=== PATIENT | male | born 1990 | race African-American/Black ===

== ENCOUNTER 2021-11-07 02:06 | Emergency (ER) | payer SELFPAY ==
[~2021-11-07] VITALS: Ht 175.3 cm; Wt 79.0 kg
[2021-11-07] MEDS ORDERED: CEFAZOLIN 1000MG PREMIX 50 ML IV ONE (02:30)
[2021-11-07] MEDS ORDERED: MORPHINE SULFATE 2 MG/ML CPJ (NOT FOR IM USE) IV ONE (02:30)
[2021-11-07] MEDS ORDERED: LIDOCAINE HCL/EPINEPHRINE 1%-EPI 1:100,000 20 ML VIAL INFIL ONE (02:45)
[2021-11-07] MEDS ORDERED: BACITRACIN ZINC OINT UDPKT TOP ONE (02:45)
[2021-11-07] MEDS ORDERED: ONDANSETRON HCL 4MG/2ML INJ IV ONE (02:45)
[2021-11-07 02:48] VITALS: BP 124/90
[2021-11-07] MEDS ORDERED: AMOX-424 MT (04:28)
== END 2021-11-07 04:40 | disposition home or self-care (01) ==
LOC: ER 02:06
DX: S61.412A Laceration without foreign body of left hand, initial encounter (principal); X99.1XXA Assault by knife, initial encounter; Y93.89 Activity, other specified; Y92.018 Other place in single-family (private) house as the place of occurrence of the external cause
CPT/HCPCS: 12004; 73130; 96365; 96375; 99284; A4217; J0690; J2270; J2405; J3490